=== PATIENT | male | born 1970 | race Caucasian/White ===

== ENCOUNTER 2019-01-27 20:13 | Inpatient (IN) | payer OTHER ==
[~2019-01-27] VITALS: Ht 190.5 cm; Wt 93.4 kg
[~2019-01-27 20:13] MED LIST: Augmentin 875-1 EACH PO; ERYT.5TO LEFTEYE
[2019-01-27 20:32] LABS: BASOPHILS ABSOLUTE AUTO 0.07 K/mm3 (0.00-0.23); BASOPHILS PERCENT AUTO 1 % (0-2); EOSINOPHILS ABSOLUTE AUTO 0.22 K/mm3 (0.00-0.68); EOSINOPHILS PERCENT AUTO 2 % (0-6); Hematocrit 43.8 % (37.0-53.0); Hemoglobin 14.1 g/dL (13.5-17.5); IMMATURE GRAN ABSOLUTE AUTO 0.04 K/mm3 (0.00-0.10); IMMATURE GRAN PERCENT AUTO 0 % (0-1); LYMPHOCYTES ABSOLUTE AUTO 4.13 K/mm3 (0.84-5.20); LYMPHOCYTES PERCENT AUTO 34 % (21-46); MONOCYTES ABSOLUTE AUTO 0.99 K/mm3 (0.16-1.47); MONOCYTES PERCENT AUTO 8 % (4-13); Mean Corpuscular HGB 30.5 pg (26.0-34.0); Mean Corpuscular HGB Conc 32.2 g/dL (31.5-36.5); Mean Corpuscular Volume 95 fL (80-100); Mean Platelet Volume 10.9 fL (9.1-12.4); NEUTROPHILS ABSOLUTE AUTO 6.87 K/mm3 (1.96-9.15); NEUTROPHILS PERCENT AUTO 56 % (41-73); Platelet Count 333 K/mm3 (150-400); RDW Coefficient Variation 12.3 % (11.7-14.2); RDW Standard Deviation 43.2 fL (35.1-46.3); Red Blood Cell Count 4.62 M/mm3 (4.30-5.90); White Blood Cell Count 12.32 K/mm3 (4.00-11.30)
[2019-01-27 20:32] LABS: Source, Urine Catheter
[2019-01-27 20:36] LABS: Bilirubin, Urine Neg (Neg); Blood, Urine 1+ (Neg); Glucose Qualitative, Urine Neg (Neg); Ketones, Urine 3+ (Neg); Leukocyte Esterase, Urine Neg (Neg); Nitrite, Urine Neg (Neg); Protein, Urine 2+ (Neg); Urobilinogen, Urine NORM (Normal)
[2019-01-27 20:44] LABS: Appearance, Urine Hazy (Clear); Color, Urine Yellow (P-Yellow)
[2019-01-27 20:45] LABS: Amorphous Mod (0-Heavy); Bacteria Not Seen /hpf; Red Blood Cells, Urine Rare /hpf (0-2); Spermatozoa Many /hpf; Squamous Epithelial Cells Not Seen /hpf (Few); White Blood Cells, Urine Rare /hpf (0-5)
[2019-01-27 20:47] LABS: U Amphetamine Screen DETECTED; U Barbituate Screen Not Detected; U Benzodiazapine Screen Not Detected; U Buprenorphine Screen Not Detected; U Cannabinoids Screen Not Detected; U Cocaine Screen Not Detected; U Methadone Screen Not Detected; U Methamphetamine Screen Not Detected; U Opiates Screen Not Detected; U Oxycodone Screen Not Detected; U Phencyclidine Screen Not Detected; U Propoxyphene Screen Not Detected
[2019-01-27 20:54] LABS: Alanine Aminotransfer (ALT/SGP 38 U/L (12-78); Albumin, Blood 4.4 g/dL (3.4-5.0); Albumin/Globulin Ratio 1.2 (0.8-1.8); Alk Phos 66 U/L (50-136); Anion Gap 18 mmol/L (6-16); Aspartate Aminotrans (AST/SGOT 37 U/L (12-37); Bilirubin, Total 0.5 mg/dL (0.1-1.0); Blood Urea Nitrogen 12 mg/dL (8-24); CO2, Blood 19 mmol/L (21-32); Calcium, Blood 9.6 mg/dL (8.5-10.1); Chloride, Blood 103 mmol/L (98-108); Creatinine, Blood 1.34 mg/dL (0.60-1.20); Ethanol (Alcohol), Blood, Med <3 mg/dL; Globulin, Blood 3.7 g/dL (2.2-4.0); Glomerular Filtration Rate >60 (60-); Glucose, Blood 179 mg/dL (70-99); Salicylate <1.7 mg/dL (2.8-20.0); Sodium, Blood 140 mmol/L (136-145); Thyroxine (T4) 9.3 ug/dL (4.5-12.1); Total Protein, Blood 8.1 g/dL (6.4-8.2)
[2019-01-27 20:56] LABS: Acetaminophen, Random <2.0 ug/mL (10.0-30.0)
[2019-01-27 21:03] LABS: Influenza A Negative (NEGATIVE); Influenza B Negative (NEGATIVE)
[2019-01-27 21:10] LABS: Calcium, Ionized (POC) 1.07 mmol/L (1.10-1.46); Chloride (POC) 104 mmol/L (98-108); Creatinine (POC) 1.3 mg/dL (0.8-1.3); Glucose (ISTAT POC) 149 mg/dL (70-99); Hemoglobin (POC) 13.6 g/dL (13.5-17.5); Potassium (POC) 3.8 mmol/L (3.5-5.5); Sodium (POC) 139 mmol/L (135-148); Total CO2 (POC) 20 mmol/L (21-32)
[2019-01-27 21:28] LABS: International Normalized Ratio 1.03; Prothrombin Time Results 10.9 Sec (9.7-11.5)
[2019-01-27 21:34] LABS: PCO2 Arterial 31.7 mmHg (35-45); PO2 Arterial 92.7 mmHg (80-100); pH Blood Arterial 7.48 (7.35-7.45)
[2019-01-27 22:38] LABS: Appearance, CSF Clear (Clear); Color, CSF No Color (No Color)
[2019-01-27 22:39] LABS: RBC Count, CSF 1 /mm3 (0-0); WBC Count, CSF 0 /mm3 (0-5)
[2019-01-27 22:47] LABS: Glucose, CSF 84 mg/dL (40-70)
[2019-01-27 23:20] LABS: Creatine Kinase MB 7.1 ng/mL (0.0-3.6)
[2019-01-27 23:52] LABS: Cryptococcus Neoformans/Gattii Not Detected (NOT DETECT); Enterovirus Not Detected (NOT DETECT); Escherichia Coli K1 Not Detected (NOT DETECT); Haemophilus Influenza Not Detected (NOT DETECT); Herpes Simplex Virus 1 Not Detected (NOT DETECT); Herpes Simplex Virus 2 Not Detected (NOT DETECT); Human Herpesvirus 6 Not Detected (NOT DETECT); Human Parechovirus Not Detected (NOT DETECT); Listeria Monocytogenes Not Detected (NOT DETECT); Neisseria Meningitidis Not Detected (NOT DETECT); Streptococcus Agalactiae Not Detected (NOT DETECT); Streptococcus Pneumoniae Not Detected (NOT DETECT); Varicella Zoster Virus Not Detected (NOT DETECT)
--- NOTE | 2019-01-28 00:41 | NUR ---
Admission/[place] of Care: Patient arrived to unit at 2325hr, accompanied by ED nurse and RT. Patient intubated/sedated, with propofol at 35mcg/kg/min. On arrival, patient very restless/agitated, pulling at restraints and thrashing in bed. Unable to re-direct patient. Propofol gtt increased to 50mcg/kg/min, and Mayra HOOVER received order from Dr. Alba for prn Ativan 2mg IV q1hr. 2mg IV given with good effect noted, patient now appears calm and comfortable. Vent set to AC-16/500/5/35%, O2-95-98%, tolerating vent without difficulty. VSS, but temp-probe beckham shows temp of 95.5 upon arrival. Warm blankets applied and temp has increased slightly to 95.7. Beckham cath patent and intact, draining clear yellow urine. Peripheral IV's x2 patent and intact, infusing without difficulty. Bilateral soft wrist restraints in place to protect lines, tubes, cords. Repeat lactic acid level drawn, awaiting results. CSF panel negative. Will continue to monitor for pain, comfort, safety.
[2019-01-28 06:10] LABS: Hematocrit 36.1 % (37.0-53.0); Hemoglobin 12.1 g/dL (13.5-17.5); Mean Corpuscular HGB 30.6 pg (26.0-34.0); Mean Corpuscular HGB Conc 33.5 g/dL (31.5-36.5); Mean Platelet Volume 10.7 fL (9.1-12.4); Platelet Count 208 K/mm3 (150-400); RDW Coefficient Variation 12.4 % (11.7-14.2); RDW Standard Deviation 41.3 fL (35.1-46.3); Red Blood Cell Count 3.96 M/mm3 (4.30-5.90); White Blood Cell Count 6.52 K/mm3 (4.00-11.30)
--- NOTE | 2019-01-28 06:15 | NUR ---
Shift Summary: No significant changes throughout remainder of shift. Remain intubated/sedated, with propofol at 40mcg/kg/min, no changes to vent settings. Rouses to noxious stimuli, or spontaneously, but very restless/agitated in bed when roused, thrashing in bed. Does not follow any commands, unable to re-direct patient. Prn Ativan given x3 with good effect. Peripheral IV's x2 remain patent and intact. Staley cath remains patent and intact. Temp has steadily increased, now 97.3. Appears calm and comfortable at this time. Will continue to monitor until report to day shift RN.
[2019-01-28 06:19] LABS: Mean Corpuscular Volume 91 fL (80-100)
[2019-01-28 06:30] LABS: Alanine Aminotransfer (ALT/SGP 34 U/L (12-78); Albumin, Blood 3.4 g/dL (3.4-5.0); Alk Phos 50 U/L (50-136); Anion Gap 8 mmol/L (6-16); Aspartate Aminotrans (AST/SGOT 44 U/L (12-37); Bilirubin, Total 0.4 mg/dL (0.1-1.0); Blood Urea Nitrogen 9 mg/dL (8-24); Bun/Creatinine Ratio 11.5 (12.0-20.0); CO2, Blood 22 mmol/L (21-32); Calcium, Blood 8.2 mg/dL (8.5-10.1); Chloride, Blood 111 mmol/L (98-108); Creatinine, Blood 0.78 mg/dL (0.60-1.20); Globulin, Blood 3.3 g/dL (2.2-4.0); Glomerular Filtration Rate >60 (60-); Glucose, Blood 125 mg/dL (70-99); Potassium, Blood 3.9 mmol/L (3.5-5.5); Sodium, Blood 141 mmol/L (136-145); Total Protein, Blood 6.7 g/dL (6.4-8.2)
--- NOTE | 2019-01-28 08:00 | NUR ---
INITIAL ASSESSMENT PATIENT INTUBATED AND SEDATED. PATIENT RESPONDS TO PAINFUL STIMULI AND NURSING CARE. PATIENT LOCALIZING MOVEMENTS TO ALL EXTREMITIES. PATIENT HAS NO SIGNS OF PAIN OR DISCOMFORT AT THIS TIME. PATIENT AFEBRILE. PATIENT ON VENT SETTINGS OF AC 16, TV 500, PEEP 5, AND 35% FIO2. LUNGS CLEAR IN UPPER LOBES, DIMINISHED IN LOWER LOBES. PATIENT HAS COPIOUS, CLEAR ORAL SECRETIONS. SMALL, THICK, CLEAR SECRETIONS BEING SUCTIONED FROM ETT. PATIENT IN SR, HR IN THE 90S. BP STABLE. ABDOMEN MILDLY DISTENDED, SOFT, WITH HYPOACTIVE BS NOTED. OG TO LIS, DRAINING GREEN LIQUID. DATE OF LAST BM UNKNOWN. DOVE IN PLACE, DRAINING YELLOW/ WHITE, CLOUDY/ FROTHY URINE. RAISED RED BUMPS NOTED TO BACK AND BUTTOCKS, OTHERWISE SKIN APPEARS C/D/I. NS INFUSING AT 125 MLS/ HOUR, PROPOFOL AT 40 MCG/ KG/ MINUTE. BED LOW, CALL LIGHT IN REACH. WILL CONTINUE TO MONITOR PATIENT FREQUENTLY THROUGHOUT SHIFT.
[2019-01-28 11:05] LABS: Base Excess Venous -3.3 mmol/L; Bicarbonate Venous 22.1 mmol/L (24.0-30.0); PCO2 Venous 36.8 mmHg (38-42); PO2 Venous 174 mmHg (38-42); pH Blood Venous 7.38 (7.34-7.37)
[2019-01-28 11:06] LABS: Source, Urine Catheter
[2019-01-28 11:26] LABS: Bilirubin, Urine Neg (Neg); Blood, Urine Neg (Neg); Color, Urine Yellow (P-Yellow); Glucose Qualitative, Urine Neg (Neg); Ketones, Urine 4+ (Neg); Leukocyte Esterase, Urine Neg (Neg); Nitrite, Urine Neg (Neg); Protein, Urine 1+ (Neg); Urobilinogen, Urine NORM (Normal)
[2019-01-28 11:28] LABS: Appearance, Urine Hazy (Clear)
[2019-01-28 11:29] LABS: Amorphous Heavy (0-Heavy); Bacteria Not Seen /hpf; Red Blood Cells, Urine 0-2 /hpf (0-2); Squamous Epithelial Cells Not Seen /hpf (Few)
--- NOTE | 2019-01-28 12:00 | NUR ---
PATIENT RESTING QUIETLY IN BED. PATIENT REMAINS INTUBATED AND SEDATED. PATIENT AFEBRILE. VITAL SIGNS STABLE. PATIENT REMAINS SATTING 90% AND GREATER ON SAME VENT SETTINGS. PATIENT REMAINS IN SR, HR 80S TO 90S. BP STABLE. NS INFUSING TKO WITH PROPOFOL REMAINING AT 40 MCG/ KG/ MINUTE. NO OTHER ACUTE CHANGES TO NOTE ON AT THIS TIME. NO SIGNS OF PAIN OR DISCOMFORT NOTED. WILL CONTINUE TO MONITOR.
--- NOTE | 2019-01-28 13:03 | NUR ---
PRIMARY NURSE TRIED TO CALL PATIENT'S MOTHER IS ONLY CONTACT LISTED IN CHART. LINE GAVE BUSY TONE. WILL TRY AGAIN LATER.
--- NOTE | 2019-01-28 16:00 | NUR ---
PATIENT REMAINS INTUBATED AND SEDATED. VITAL SIGNS STABLE. NO ACUTE CHANGES TO NOTE ON. NO SIGNS OF PAIN OR DISCOMFORT NOTED. TRIED TO CALL PATIENT'S MOTHER AGAIN BUT STILL GETTING BUSY TONE. WILL CONTINUE TO MONITOR.
--- NOTE | 2019-01-28 18:39 | NUR ---
SHIFT SUMMARY PATIENT REMAINED INTUBATED AND ON SEDATION THROUGHOUT SHIFT. PATIENT CONTINUES TO RESPOND TO PAINFUL STIMULI AND NURSING CARE. PATIENT REMAINED LOCALIZING MOVEMENTS TO ALL EXTREMITIES. PATIENT HAS GOOD STRENGTH TO ALL EXTREMITIES. PATIENT REMAINED AFEBRILE. PATIENT BECAME VERY AGITATED AT END OF SHIFT; PRN ATIVAN AND FENTANYL GIVEN. PATIENT NOW RESTING QUIETLY IN BED WITH NO SIGNS OF PAIN OR DISCOMFORT. PATIENT REMAINS ON AC 16, TV 500, PEEP 5, 35% FIO2. PATIENT CONTINUED TO HAVE COPIOUS AMOUNT OF CLEAR/ WHITE ORAL SECRETIONS. PATIENT HAD SMALL AMOUNT OF THICK, CLEAR SECRETIONS FROM ETT. PATIENT REMAINED IN SR, HR 80S TO 90S. BP REMAINED STABLE T/O SHIFT. PATIENT DID NOT HAVE BM THIS SHIFT. OG TO LIS, DRAINING SMALL AMOUNT OF GREEN LIQUID. DOVE DRAINED 387 MLS OF WHITE/ YELLOW, CLOUDY/ FROTHY URINE. NS DECREASED FROM 125 MLS/ HOUR TO TKO. DR. HERNADEZ AWARE OF OUTPUT AND DOES NOT WANT MAINTENANCE FLUID AT THIS TIME. NO CHANGE TO SKIN. PATIENT REPOSITIONED THROUGHOUT SHIFT. PROPOFOL INFUSING AT 40 MCG/ KG/ MINUTE. PATIENT'S MOTHER CALLED TWICE THIS SHIFT BUT BUSY TONE EACH TIME. BED LOW, CALL LIGHT IN REACH. REPORT WILL BE GIVEN TO ASSUMING SNORKELLING INSTRUCTOR NURSE SHORTLY.
--- NOTE | 2019-01-28 20:31 | NUR ---
[place] of Care: Patient remains intubated/sedated. Vent to AC- 16/500/5/30%, tolerating vent without difficulty. VSS, O2-96%. Propofol gtt to 40mcg/kg/min, patient responds to verbal stimuli, attempts to open eyes and follows simple commands i.e. (squeeze hands, wiggle toes). Slightly restless at times, but responding better to verbal re-direction compared to last NOC shift. Peripheral IV's x2 patent and intact, new dressings applied to both IV's per lifting. OG to LIS, minimal clear drainage noted in tubing. Small amount of thick yellow tinged sputum from ETT. Staley cath patent and intact, draining cloudy yellow urine. Bilateral soft wrist restraints in place. Will continue to monitor for pain, safety, comfort.
[2019-01-29 03:25] LABS: BASOPHILS ABSOLUTE AUTO 0.03 K/mm3 (0.00-0.23); BASOPHILS PERCENT AUTO 0 % (0-2); EOSINOPHILS ABSOLUTE AUTO 0.11 K/mm3 (0.00-0.68); EOSINOPHILS PERCENT AUTO 1 % (0-6); Hematocrit 34.1 % (37.0-53.0); Hemoglobin 11.4 g/dL (13.5-17.5); IMMATURE GRAN ABSOLUTE AUTO 0.02 K/mm3 (0.00-0.10); IMMATURE GRAN PERCENT AUTO 0 % (0-1); LYMPHOCYTES PERCENT AUTO 26 % (21-46); MONOCYTES ABSOLUTE AUTO 0.55 K/mm3 (0.16-1.47); MONOCYTES PERCENT AUTO 6 % (4-13); Mean Corpuscular HGB 30.8 pg (26.0-34.0); Mean Corpuscular HGB Conc 33.4 g/dL (31.5-36.5); Mean Corpuscular Volume 92 fL (80-100); Mean Platelet Volume 10.8 fL (9.1-12.4); NEUTROPHILS ABSOLUTE AUTO 5.83 K/mm3 (1.96-9.15); NEUTROPHILS PERCENT AUTO 66 % (41-73); Platelet Count 188 K/mm3 (150-400); RDW Standard Deviation 43.6 fL (35.1-46.3); White Blood Cell Count 8.84 K/mm3 (4.00-11.30)
[2019-01-29 03:42] LABS: Anion Gap 8 mmol/L (6-16); Blood Urea Nitrogen 10 mg/dL (8-24); Bun/Creatinine Ratio 12.5 (12.0-20.0); CO2, Blood 25 mmol/L (21-32); Calcium, Blood 8.3 mg/dL (8.5-10.1); Chloride, Blood 111 mmol/L (98-108); Glomerular Filtration Rate >60 (60-); Glucose, Blood 93 mg/dL (70-99); Potassium, Blood 3.1 mmol/L (3.5-5.5); Sodium, Blood 144 mmol/L (136-145)
--- NOTE | 2019-01-29 06:31 | NUR ---
Shift Summary: Patient remains intubated/sedated. Vent to AC 16/500/5, FiO2 decreased to 25%. Tolerating vent without difficulty. Propofol at 40mcg/kg/min until approx 0300hr. Patient then became very agitated and restless when staff attempted to oral suction. Agitation restlessness persisted, patient sitting up in bed, reaching for ETT, flailing legs. Unable to re-direct patient, prn fentanyl and ativan given, propofol increased to 45mcg/kg/min, with good effect. Patient again became very agitated at approx 0400hr. Again attempting to get out of bed, pull at ETT, flailing legs, and began attempting to kick at staff. Again unable to re-direct patient. x4 point restraints applied. Prn Ativan given and Propofol gtt increased to 50mcg/kg/min, with good effect. Patient remained sedated for remainder of shift. Will continue to monitor until report to day shift RN.
--- NOTE | 2019-01-29 10:37 | NUR ---
EXTUBATED WITH RN PER MD ORDERS AT 1001. MD HAD ALREADY CHANGED VENT TO SPONT MODE PS 8, PEEP 5, 25%. PUT ON 2L NC POST EXTUBATION. PT TOLERTED WELL
--- NOTE | 2019-01-29 12:06 | NUR ---
0730: CARE ASSUMED, ASSESSMENT COMPLETED. PT SEDATED WITH PROPOFOL 50MCG/KG/MIN, INTUBATED, VENT SETTINGS AC 16, Vt 500, PEEP 5, FIO2 25%. PT RESTING QUIETLY, NO S/SX DISTRESS NOTED. DOVE PATENT AND DRAINING TO GRAVITY, SEE ASSESSMENT. VSS. 0930: DR. CROWDER IN TO SEE PT, PLAN TO STOP PROPOFOL AND EXTUBATE IF PT TOLERATES. VSS, PT WILL OPEN EYES AND NOD YES AND NO APPROPRIATELY DESPITE SEDATION WITH PROPOFOL. 1001: PT EXTUBATED AT THIS TIME, IS AWAKE BUT DROWSY, ORIENTED TO SELF, FOLLOWING COMMANDS, SOFT BLE AND BUE RESTRAINTS REMAIN IN PLACE UNTIL PATIENT IS MORE ALERT. VSS, PT CALM AND COOPERATIVE. 1130: PT WAS RESTING QUIETLY UNTIL 1100 WHEN HE BEGAN TO WAKE UP AND ATTEMPT TO GET OOB, IS UNCOOPERATIVE AND ASKING WHERE HE IS AND WHY, IS HAVING VISUAL HALLUCINATIONS . PT NOT VERBALLY REDIRECTABLE, SEDATED WITH ATIVAN PER ORDERS, SECURITY AND EXTRA NURSING STAFF AT BEDSIDE. 1200: MULTIPLE DOSES OF ATIVAN AND FENTANYL ADMINISTERED FOR SEDATION, PRECEDEX NOW INFUSING PER ORDERS. PT REMAINS CONFUSED, IS CALM AND DROWSY AT THIS TIME. VSS THROUGHOUT.
--- NOTE | 2019-01-29 13:43 | NUR ---
PT SEDATED PER ORDERS, IS CALM AND QUIET AT THIS TIME, RESTING WITH EYES CLOSED. HR 80'S SINUS, BP WNL, TEMP AFEBRILE. SPO2 >90% 4L/NC, RR 30/MIN SHALLOW. RESTRAINTS X4 EXTREMS REMAIN IN PLACE. 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
--- NOTE | 2019-01-29 17:33 | NUR ---
1600: PT SEDATED ADEQUATELY AT THIS TIME, VSS. SPO2 LOW 90'S, TITRATING O2 TO KEEP >90%. PT RESTING QUIETLY, ROUSES EASILY TO PRESSURE, VSS. 1730: PRECEDEX INFUSING AT 1.4MCG, ATIVAN PRN FOR AGITATION. PT RESTING QUIETLY AT THIS TIME, AEROSOL MASK ON WITH O2 60% 12L. SPO2 MID 90'S, OTHER VSS. PT RESTING QUIETLY, REMAINS IN 4 POINT SOFT RESTRATINTS DUE TO UNCONTROLLABLE BEHAVIOR WHEN AWAKE.
--- NOTE | 2019-01-29 18:49 | NUR ---
NOTIFIED OF INCREASING BP, CURRENTLY 160/90, HR 90'S NSR. MEDICATED WITH HYDRALAZINE PER ORDERS. PT REMAINS ON PRECEDEX 1.4MCG WITH PRN ATIVAN. PT AFEBRILE T/O SHIFT, REMAINS CONFUSED AND HALLUCINATING WHEN AWAKE. RESTRAINTS REMAIN IN PLACE, SPO2 MID 90'S ON 60% AEROSOL MASK. REPORT TO ONCOMING SHIFT.
[2019-01-30 04:00] LABS: BASOPHILS ABSOLUTE AUTO 0.05 K/mm3 (0.00-0.23); BASOPHILS PERCENT AUTO 1 % (0-2); EOSINOPHILS ABSOLUTE AUTO 0.16 K/mm3 (0.00-0.68); EOSINOPHILS PERCENT AUTO 2 % (0-6); Hematocrit 39.2 % (37.0-53.0); Hemoglobin 13.2 g/dL (13.5-17.5); IMMATURE GRAN ABSOLUTE AUTO 0.03 K/mm3 (0.00-0.10); IMMATURE GRAN PERCENT AUTO 0 % (0-1); LYMPHOCYTES ABSOLUTE AUTO 1.64 K/mm3 (0.84-5.20); LYMPHOCYTES PERCENT AUTO 20 % (21-46); MONOCYTES ABSOLUTE AUTO 0.46 K/mm3 (0.16-1.47); MONOCYTES PERCENT AUTO 6 % (4-13); Mean Corpuscular HGB 30.3 pg (26.0-34.0); Mean Corpuscular HGB Conc 33.7 g/dL (31.5-36.5); Mean Corpuscular Volume 90 fL (80-100); Mean Platelet Volume 11.3 fL (9.1-12.4); NEUTROPHILS ABSOLUTE AUTO 5.93 K/mm3 (1.96-9.15); NEUTROPHILS PERCENT AUTO 72 % (41-73); Platelet Count 211 K/mm3 (150-400); RDW Coefficient Variation 12.3 % (11.7-14.2); Red Blood Cell Count 4.36 M/mm3 (4.30-5.90); White Blood Cell Count 8.27 K/mm3 (4.00-11.30)
[2019-01-30 04:26] LABS: Anion Gap 10 mmol/L (6-16); Blood Urea Nitrogen 5 mg/dL (8-24); Bun/Creatinine Ratio 8.2 (12.0-20.0); CO2, Blood 23 mmol/L (21-32); Calcium, Blood 8.6 mg/dL (8.5-10.1); Chloride, Blood 109 mmol/L (98-108); Creatinine, Blood 0.61 mg/dL (0.60-1.20); Glomerular Filtration Rate >60 (60-); Glucose, Blood 93 mg/dL (70-99); Magnesium, Blood 1.9 mg/dL (1.6-2.4); Phosphorus, Blood 1.8 mg/dL (2.5-4.9); Potassium, Blood 3.3 mmol/L (3.5-5.5); Sodium, Blood 142 mmol/L (136-145)
[2019-01-30 04:53] LABS: PCO2 Arterial 34.5 mmHg (35-45); PO2 Arterial 63.8 mmHg (80-100); pH Blood Arterial 7.47 (7.35-7.45)
--- NOTE | 2019-01-30 05:56 | NUR ---
SHIFT SUMMARY PATIENT SLEPT WELL THROUGH NIGHT. GAVE MULTIPLE PRN DOSES OF ATIVAN FOR AGITATION, SEE EMAR. ASSESSMENT IS CHARTED. VSS. WILL CONTINUE TO MONITOR.
--- NOTE | 2019-01-30 10:57 | NUR ---
PRECEDEX GTT HAS BEEN TITRATED DOWN TO 0.7MCG. PT RESTLESSNESS HAS NOT SIGNIFICANTLY CHNAGED WITH THIS TITRATION. PT HAS EPISODIC PERIODS OF RAISING UP IN BED PULLING ON RESETRAINTS AND TRYING TO GET OUT OF BED, THEN WILL LIE BACK AND REST FOR A PERIOD OF TIME. NO OTHER INTERVENTIONS HAVE BEEN NEEDED AT THIS TIME. PT REMAINS IN 4 POINT RESTRAINT DUE TO DELIRIUM. PT CAN REPEAT ONE OR 2 WORDS WHEN COACHED AND OCC CLEAR WORD SPOKEN OTHERWISE. MINIMAL TO NO ABILITY TO FOLLOW COMMNADS.
--- NOTE | 2019-01-30 14:29 | NUR ---
ATIVAN WAS FINALY ADMINISTERED, SEE EMAR. PT IS RESTING AND CALM FOR LONGER PERIODS OF TIME. PRECEDEX GTT CONT. AT 0.7 MCG ALONG WITH THE ATIVAN GIVEN. VSS. SATS AND RR REMAIN ADIQUATE NOTED.
--- NOTE | 2019-01-30 17:32 | NUR ---
PT PRECEDEX GTT AT 0.7MCG AND ATIVAN PRN'S ARE CURRENTLY ASSISTING PT TO REST AND BE CALM. RESP STATUS IS STABLE WITH RR -18-24 AND STATS NOTED ON RA. PT CONTINUES TO BE UNPREDICTABLE AND WILL FOLLOW PT STATUS. I/O NOTED. VSS PT CONT. TO BE IN 4 POINT SOFT RESTRAINTS DOCUMENTED.
--- NOTE | 2019-01-30 17:44 | NUR ---
PT ABRUPTLY ESCILATED FROM CALM TO AGITATED AND WAS TREATED WITH ATIVAN. SL PROLONGED QT AND BRADYCARDIA PERIST AND PRECEDEX GTT DEC TO 0.5MCG. WILL FOLLOW AND REPORT.
--- NOTE | 2019-01-30 18:31 | NUR ---
PT AGITATION ESCLATED AND AGGRESSIVE ATTEMPTS TO GET OOB AND INC STRESS TO SHOULDERS. PT IS UNABLE TO COOPERATE AND JUST REQUESTING TO BE LET LOOSE FROM "[facility]".
--- NOTE | 2019-01-30 21:36 | NUR ---
ASSUME CARE RECEIVED REPORT FROM SNEHA KHAN. PT VISIBLY AGITATED, PULLING AT LINES AND RESTRAINTS AND ATTEMPTING TO GET OUT OF BED. PRECEDEX GTT OF 0.5 INCREASED TO 1.4. PATIENT ON RA SATS IN LOW 90S WITH OCCASSIONAL DESATS 88-89%. PT NPO. DOVE DRAINING CLEAR YELLOW URINE TO GRAVITY. PATIENT IN FOUR POINT SOLF RESTRAINTS. IVS FLUSHING/INFUSING. HR IN 70S-80S. WILL CONTINUE TO MONITOR.
--- NOTE | 2019-01-30 21:39 | NUR ---
RESPIRATORY STATUS AFTER 8MG ATIVAN, 10MG HALDOL PATIENT STARTED TO DESAT 88-89% MORE OFTEN, PATIENT PLACED ON 2L NC. SATS NOW IN LOW 90S.
--- NOTE | 2019-01-30 21:40 | NUR ---
AGITATION PT RECEIVED 8MG ATIVAN AT ABOUT 1955, THEN BECAME AGITATED 15 MINUTES LATER. ANOTHER 8MG ATIVAN GIVEN. MD CALLED FOR FUTHER ORDERS FOR AGITATION. ZYPREXA ODT AND HALDOL ORDERED. PT GIVEN ODT WITH LITTLE/NO CHANGE IN PATIENT AGITATION. PT RECEIVED 10MG HALDOL, 10 MINUTES LATER PT PULLING AT LINES AND TRYIGN TO GET OUT OF BED.
[2019-01-31 03:55] LABS: BASOPHILS ABSOLUTE AUTO 0.03 K/mm3 (0.00-0.23); BASOPHILS PERCENT AUTO 0 % (0-2); EOSINOPHILS ABSOLUTE AUTO 0.16 K/mm3 (0.00-0.68); EOSINOPHILS PERCENT AUTO 2 % (0-6); Hematocrit 41.1 % (37.0-53.0); Hemoglobin 14.1 g/dL (13.5-17.5); IMMATURE GRAN ABSOLUTE AUTO 0.03 K/mm3 (0.00-0.10); IMMATURE GRAN PERCENT AUTO 0 % (0-1); LYMPHOCYTES ABSOLUTE AUTO 1.54 K/mm3 (0.84-5.20); LYMPHOCYTES PERCENT AUTO 18 % (21-46); MONOCYTES ABSOLUTE AUTO 0.46 K/mm3 (0.16-1.47); MONOCYTES PERCENT AUTO 5 % (4-13); Mean Corpuscular HGB 30.6 pg (26.0-34.0); Mean Corpuscular HGB Conc 34.3 g/dL (31.5-36.5); Mean Corpuscular Volume 89 fL (80-100); Mean Platelet Volume 10.7 fL (9.1-12.4); NEUTROPHILS ABSOLUTE AUTO 6.48 K/mm3 (1.96-9.15); NEUTROPHILS PERCENT AUTO 75 % (41-73); Platelet Count 227 K/mm3 (150-400); RDW Coefficient Variation 12.2 % (11.7-14.2); RDW Standard Deviation 39.9 fL (35.1-46.3); Red Blood Cell Count 4.61 M/mm3 (4.30-5.90)
[2019-01-31 04:10] LABS: Anion Gap 10 mmol/L (6-16); Blood Urea Nitrogen 11 mg/dL (8-24); Bun/Creatinine Ratio 12.6 (12.0-20.0); CO2, Blood 22 mmol/L (21-32); Chloride, Blood 110 mmol/L (98-108); Creatinine, Blood 0.87 mg/dL (0.60-1.20); Glomerular Filtration Rate >60 (60-); Glucose, Blood 90 mg/dL (70-99); Magnesium, Blood 2.1 mg/dL (1.6-2.4); Phosphorus, Blood 3.3 mg/dL (2.5-4.9); Potassium, Blood 3.9 mmol/L (3.5-5.5); Sodium, Blood 142 mmol/L (136-145)
--- NOTE | 2019-01-31 06:03 | NUR ---
PATIENT STILL ON 3L NC. SATS ABOVE 92%. PATIENT HAD PERIODS OF AGITATION OVERNIGHT. 12MG ATIVAN, 10MG HALDOL GIVEN TOTAL THROUGHOUT SHIFT. URINE OUTPUT MINIMAL 360 THROUGH SHIFT. PATIENT LUNGS CTAB WITH DIMINISHED BASES. NSR. VSS. AFEBRILE. WILL CONTINUE TO MONITOR UNTIL REPORT GIVEN TO DAY SHIFT RN.
--- NOTE | 2019-01-31 10:49 | NUR ---
PT POWERS BEEN RESTLESS BUT NOT AGGRESSIVELY AGITATED. MEDS PER EMAR. PRECEDEX GTT AT 0.5 MCG. HAVE CHANGED TO D51/2 AT 100 ML. PT REMAINS IN 4 POINT SOFT RESTRAINTS. DOVE CATH CURRENTLY IN SAFE PLACEMENT. WILL REASSESS IV SITES AND PLAN FOR A MID LINE SITE. PT TOOK VERY SMALL AMOUNTS OF WATER OFF SPOON AND SL PO MED W/O DISTRESS AND SWALLOWING WELL.
--- NOTE | 2019-01-31 13:46 | NUR ---
AT APPROX 1200 IT WAS NOTICED THAT PT HAD PULLED OUT HIS DOVE WITH THE BALLOON INFLATED TO NEAR THE END OF THE PENIS. WITH REMOVAL OF THE OLD DOVE THERE WAS SOME SMALL AMOUNT OF BLEEDING THAT STOPPED SHORTLY AFTER AND THE URINE PER THE NEW DOVE WAS CLEAR TO VISUAL ASSESSMENT. DR SLATER WAS CALLED JUST NOW AND NOTIFIED, NO NEW ORDERS WERE GIVEN. EFFORTS WERE MADE WITH THE NEW DOVE TUBING TO PROTECT THE TUBE WITH COBAN TO THIGH AND INNER THIGH WITH THE STAT LOCK. WILL CONT TO ASSESS FOR BLEEDING AND ATTEMP TO PROTECT FROM PT PULLING AT LINE. DOVE WAS INITALLY FOUND DUE TO PT BECOMING MILDLY AGITATED AND ENTERING ROOM FOR MED ADMINISTRATION.
--- NOTE | 2019-01-31 18:45 | NUR ---
PT HAS HAD VARRYING DEGREES OF AGITATION THIS DAY, SEE EMAR. PT REMAINS AND REQUIRING 4 POINT SOFT RESTRAINTS. THE IS ONLY SCAN MEATUS BLOOD NOTED. I/O NOTED. PRECEDEX AT 0.7 AND D51/2 AT 100ML. PT IS CONT TO HAVE MOD AMOUNTS OF ORAL AND DEEP ORAL SECREATION OF YELLOW COLOR AND SOME OLD BROWN ROOF OF MOUTH CASTS THAT HAVE CONT TO BE DIFFICULT TO REMOVE COMPLETELY.
[2019-02-01 04:05] LABS: BASOPHILS ABSOLUTE AUTO 0.03 K/mm3 (0.00-0.23); BASOPHILS PERCENT AUTO 0 % (0-2); EOSINOPHILS ABSOLUTE AUTO 0.18 K/mm3 (0.00-0.68); EOSINOPHILS PERCENT AUTO 2 % (0-6); Hematocrit 39.3 % (37.0-53.0); Hemoglobin 13.5 g/dL (13.5-17.5); IMMATURE GRAN ABSOLUTE AUTO 0.04 K/mm3 (0.00-0.10); IMMATURE GRAN PERCENT AUTO 1 % (0-1); LYMPHOCYTES ABSOLUTE AUTO 1.72 K/mm3 (0.84-5.20); LYMPHOCYTES PERCENT AUTO 21 % (21-46); MONOCYTES ABSOLUTE AUTO 0.71 K/mm3 (0.16-1.47); MONOCYTES PERCENT AUTO 9 % (4-13); Mean Corpuscular HGB 30.5 pg (26.0-34.0); Mean Corpuscular HGB Conc 34.4 g/dL (31.5-36.5); Mean Corpuscular Volume 89 fL (80-100); Mean Platelet Volume 10.4 fL (9.1-12.4); NEUTROPHILS ABSOLUTE AUTO 5.55 K/mm3 (1.96-9.15); NEUTROPHILS PERCENT AUTO 67 % (41-73); Platelet Count 219 K/mm3 (150-400); RDW Coefficient Variation 12.2 % (11.7-14.2); RDW Standard Deviation 39.8 fL (35.1-46.3); Red Blood Cell Count 4.43 M/mm3 (4.30-5.90); White Blood Cell Count 8.23 K/mm3 (4.00-11.30)
[2019-02-01 04:20] LABS: Anion Gap 6 mmol/L (6-16); Blood Urea Nitrogen 9 mg/dL (8-24); Bun/Creatinine Ratio 12.9 (12.0-20.0); CO2, Blood 25 mmol/L (21-32); Calcium, Blood 8.6 mg/dL (8.5-10.1); Chloride, Blood 112 mmol/L (98-108); Glomerular Filtration Rate >60 (60-); Glucose, Blood 129 mg/dL (70-99); Magnesium, Blood 1.9 mg/dL (1.6-2.4); Phosphorus, Blood 3.1 mg/dL (2.5-4.9); Potassium, Blood 3.5 mmol/L (3.5-5.5); Sodium, Blood 143 mmol/L (136-145)
--- NOTE | 2019-02-01 06:10 | NUR ---
Shift Summary: Patient remained on Precedex gtt throughout shift, 0.5-0.7mcg/kg/hr. Patient continues to be restless, and confused when awake, not following any commands. Continually attempts to get out of bed, and pull at restraints when awake. PRN Ativan given x2, and PRN Haldol given x1 with good effect noted. VSS, O2-90-95% on 3L/NC. Patient responds very little to verbal stimuli, mumbles words. Power-glide to ALICIA remains patent and intact, infusing without difficulty. Staley cath remains patent and intact, draining clear yellow urine, 475ml output this shift. Appears calm and comfortable at this time. Will continue to monitor until report to day shift RN.
--- NOTE | 2019-02-01 07:15 | NUR ---
BEGINNING OF SHIFT Assumed care at 0700 from Kalin HOOVER. Pt on 3 LPM NC. SpO2 90% or greater. Lungs coarse in upper lobes. Dim in lower lobes. Receiving precedex at 0.5 mcg/kg/hr. HR 70s. SBP 105-115. Pt alert. Speech slurred, difficult to understand. Pt able to state "Helio" when asked what his name is. Pt able to supervisor denture department this RN's hands when instructed to do so. Able to minimally assist with repositioning. Pt restless, attempting to sit up in bed. Mouth plaque coated and has thick, stringy, villegas/green secrections. Oral care provided. Pt able to open mouth as insturcted for oral care. Gag reflex noted.
--- NOTE | 2019-02-01 07:30 | NUR ---
DR SLATER IN TO SEE PT Update provided. No new orders at this time.
--- NOTE | 2019-02-01 08:45 | NUR ---
PRECEDEX INCREASED Pt agitated and repeatedly sits up in bed, trying to get out of bed. Precedex increased to 0.4 mcg/kg/hr.
--- NOTE | 2019-02-01 08:45 | NUR ---
PRECEDEX INCREASED Pt agitated and repeatedly sits up in bed, trying to get out of bed. Precedex increased to 0.7 mcg/kg/hr.
--- NOTE | 2019-02-01 11:00 | NUR ---
PRECEDEX DECREASED Pt sleeping in bed. HR 55-60. SBP 100-110. Precedex decreased to 0.5 mcg/kg/hr.
--- NOTE | 2019-02-01 12:09 | NUR ---
PRECEDEX TURNED OFF Pt sleeping in bed. SBP ranging from 79-90. HR 57. Pt arouses to verbal stimulus. Pt refused oral care. States "get it away from me" and "leave me alone". Speech more clear than previously noted. Will continue to closely reassess agitation and vital signs.
--- NOTE | 2019-02-01 12:45 | NUR ---
AGITATION Pt became agitated, swatting at staff with restrained arms. Pt sitting up in bed, attempting to get out of bed. Cursing at staff. Haldol given. Agitation persisted. SBP stable and HR in 60s, therefore precedex restarted. Currently on 0.3 mcg/kg/hr.
--- NOTE | 2019-02-01 13:06 | NUR ---
DR CROWDER IN TO SEE PT Pt calm and speaking with provider. Pt asks "where is my girlfriend and mother". Pt's girlfriend, S[place], called unit. Update provided then phone call transferred into pt's room. Pt spoke with girlfriend for about 2 minutes. Speech remains slurred and difficult to understand, but pt was attempting to answer his girlfriend's questions appropriately.
--- NOTE | 2019-02-01 18:34 | NUR ---
SUMMARY At this time, pt is A&O x 2. Speaks in 4-5 word sentences. Able to make needs known. Pt asks for warm blankets, asks to use telephone to speak to family. Bedbath given and all restraints removed. Pt verbalizes understanding of restraint use. Pt asks when he can go home. Education provided. Pt currently on room air. Precedex at 0.3 mcg/kg/hr. Clinimix infusing per orders. Pt remains NPO at this time. Will continue to closely monitor until care handoff and bedside report with oncoming RN.
--- NOTE | 2019-02-01 21:17 | NUR ---
[place] of Care: Care assumed at 1900hr. Patient sleeping, but easily roused to verbal stimuli, drowsy when awake. Oriented to self, place, time/date, but confused to reason for admission. Calm and cooperative with staff, following commands. No restraints in place, removed on day shift. Bed-alarm in place as patient remains weak, concern for fall if out of bed without assistance. Precedex gtt at 0.3mcg/kg/hr at shift change, decreased to 0.2mcg/kg/hr at this time. Will continue to decrease/turn off Precedex gtt as patient remains calm and cooperative. PO fluids given and tolerated without difficulty. Peripheral IV's x2 patent and intact. Staley cath patent and intact, draining clear yellow urine. Call light in reach. Appears calm and comfortable at this time. Will continue to monitor for pain, safety, comfort.
[2019-02-02 03:47] LABS: BASOPHILS ABSOLUTE AUTO 0.04 K/mm3 (0.00-0.23); BASOPHILS PERCENT AUTO 1 % (0-2); EOSINOPHILS ABSOLUTE AUTO 0.19 K/mm3 (0.00-0.68); EOSINOPHILS PERCENT AUTO 3 % (0-6); Hematocrit 42.8 % (37.0-53.0); Hemoglobin 14.2 g/dL (13.5-17.5); IMMATURE GRAN ABSOLUTE AUTO 0.03 K/mm3 (0.00-0.10); IMMATURE GRAN PERCENT AUTO 0 % (0-1); LYMPHOCYTES ABSOLUTE AUTO 2.12 K/mm3 (0.84-5.20); LYMPHOCYTES PERCENT AUTO 29 % (21-46); MONOCYTES ABSOLUTE AUTO 0.62 K/mm3 (0.16-1.47); MONOCYTES PERCENT AUTO 8 % (4-13); Mean Corpuscular HGB 29.5 pg (26.0-34.0); Mean Corpuscular HGB Conc 33.2 g/dL (31.5-36.5); Mean Corpuscular Volume 89 fL (80-100); Mean Platelet Volume 10.3 fL (9.1-12.4); NEUTROPHILS ABSOLUTE AUTO 4.44 K/mm3 (1.96-9.15); NEUTROPHILS PERCENT AUTO 60 % (41-73); Platelet Count 223 K/mm3 (150-400); RDW Coefficient Variation 12.3 % (11.7-14.2); RDW Standard Deviation 40.1 fL (35.1-46.3); Red Blood Cell Count 4.82 M/mm3 (4.30-5.90); White Blood Cell Count 7.44 K/mm3 (4.00-11.30)
[2019-02-02 04:06] LABS: Anion Gap 7 mmol/L (6-16); Blood Urea Nitrogen 12 mg/dL (8-24); CO2, Blood 24 mmol/L (21-32); Calcium, Blood 9.1 mg/dL (8.5-10.1); Chloride, Blood 110 mmol/L (98-108); Creatinine, Blood 0.67 mg/dL (0.60-1.20); Glomerular Filtration Rate >60 (60-); Glucose, Blood 111 mg/dL (70-99); Magnesium, Blood 2.2 mg/dL (1.6-2.4); Phosphorus, Blood 3.5 mg/dL (2.5-4.9); Potassium, Blood 3.8 mmol/L (3.5-5.5); Sodium, Blood 141 mmol/L (136-145)
--- NOTE | 2019-02-02 05:57 | NUR ---
Shift Summary: Patient slept well throughout shift. Continue to rouse easily to verbal stimuli, but drowsy when awake. VSS, O2-90-96% on RA. Continues to deny pain, discomfort, SOB, or dyspnea. Remained oriented, and calm/cooperative with staff throughout shift. Precedex gtt titrated down from 0.3mcg/kg/hr to 3mcg/kg/hr then placed on stand-by at approx 0530hr. Patient has asked x2 late this shift about "checking out", referring to discharge from hospital. Remains cooperative and agree's to wait for physician to assess him today. Staley cath remains patent and intact, draining clear yellow urine. Peripheral IV's x2 remain patent and intact. Sleeping at this time, will continue to monitor until report to day shift RN.
--- NOTE | 2019-02-02 07:20 | NUR ---
BEGINNING OF SHIFT Assumed care at 0700. Bedside report received from Kalin HOOVER. Pt on room air. Precedex off. Pt awakens to gentle verbal stimulus. Pt states "I'm ready to check out". Pt willing to wait until hospitalist evaluates. Pt states the month is "January", but states the year at "1998". Sinus rhythm per monitor, rate 84. Bed in lowest position. Call light in reach. Pt denies need at this time.
--- NOTE | 2019-02-02 10:02 | NUR ---
DISCHARGE Pt discharged from unit at 0900. Pt escorted to entrance via wheelchair accompanied by this RN. This RN called [facility] to take pt to [facility] per pt request. Pt verbalized understanding of discharge instructions. Prior to discharge, pt ambulated around ICU with standby assistance from this RN. Pt showered himself. Pt ate breakfast.
== END 2019-02-02 09:00 | disposition home or self-care (01) | DRG 92 ==
LOC: ER 20:13 → ICUW 22:34
PROVIDERS: Emergency Medicine; Internal Medicine Critical Care Medicine; Internal Medicine Pulmonary Disease; ADMIT Internal Medicine
PROC: 0BH18EZ Insertion of Endotracheal Airway into Trachea, Via Natural or Artificial Opening Endoscopic (ICD-10-PCS; principal; 2019-01-27)
PROC: 5A1945Z Respiratory Ventilation, 24-96 Consecutive Hours (ICD-10-PCS; 2019-01-27)
PROC: 009U3ZX Drainage of Spinal Canal, Percutaneous Approach, Diagnostic (ICD-10-PCS; 2019-01-27)
DX: G92 Toxic encephalopathy (principal); M62.82 Rhabdomyolysis; E87.2 Acidosis; N17.9 Acute kidney failure, unspecified; R44.3 Hallucinations, unspecified; R65.10 Systemic inflammatory response syndrome (SIRS) of non-infectious origin without acute organ dysfunction; F10.231 Alcohol dependence with withdrawal delirium; F17.200 Nicotine dependence, unspecified, uncomplicated; E86.0 Dehydration; Z78.1 Physical restraint status; E87.6 Hypokalemia; R45.1 Restlessness and agitation; E83.39 Other disorders of phosphorus metabolism; F15.10 Other stimulant abuse, uncomplicated
CPT/HCPCS: 31500; 31720; 36415; 36600; 51702; 51703; 62270; 70450; 71045; 80047; 80048; 80053; 81001; 82140; 82330; 82550; 82553; 82803; 82945; 83605; 83735; 84100; 84157; 84436; 85014; 85025; 85027; 85610; 85730; 87040; 87070; 87205; 87483; 87804; 89051; 93005; 93010; 94002; 94003; 96361-59; 96365-59; 96375-59; 99291-25; C1751; G0480; J0133; J0360; J0696; J1100; J1200; J1630; J1650; J2060; J2704; J3010; J3370; J3475; J3480; J7030; J7042; J7050; J7060